=== PATIENT | male | born 1945 | race Hispanic/Latino ===

== ENCOUNTER → 2019-07-31 | Outpatient (CLI) | payer OTHER | END | disposition home or self-care (01) | LOC: RAH 12:30 | PROVIDERS: ATTEND Internal Medicine | DX: I73.89 Other specified peripheral vascular diseases (principal); M79.606 Pain in leg, unspecified; E13.621 Other specified diabetes mellitus with foot ulcer | CPT/HCPCS: 93922 ==

== ENCOUNTER → 2020-01-26 | Outpatient (CLI) | payer OTHER | END | disposition home or self-care (01) | LOC: OIH 14:51 | PROVIDERS: ATTEND Physician Assistant Medical | DX: D50.0 Iron deficiency anemia secondary to blood loss (chronic) (principal); M47.815 Spondylosis without myelopathy or radiculopathy, thoracolumbar region | CPT/HCPCS: 74018 ==